=== PATIENT | male | born 1970 | race Caucasian/White ===

== ENCOUNTER 2019-10-05 11:40 | Emergency (ER) | payer OTHER ==
[~2019-10-05] VITALS: Ht 170.2 cm; Wt 81.6 kg
[2019-10-05 11:40] VITALS: BP 110/64
--- NOTE | 2019-10-05 11:44 | NUR ---
PT BIB [facility] BED 7
--- NOTE | 2019-10-05 11:51 | NUR ---
FAMILY MEMBER- PATIENT'S SON VÍCTOR- [phone]
[2019-10-05] MEDS ORDERED: MULTIVITAMIN-12 10 ML, THIAMINE 100 MG, FOLIC ACID 1 MG, MAGNESIUM SULFATE 50% 2,000 MG... IV SCH ×5 (12:05)
[2019-10-05 12:25] VITALS: BP 112/71
[2019-10-05 12:28] LABS: BASOPHILS # (AUTO) 0.1 K/uL (0.00-0.22); BASOPHILS % (AUTO) 1.4 % (0.0-2.0); EOSINOPHILS # (AUTO) 0.1 K/uL (0-0.4); EOSINOPHILS % (AUTO) 0.9 % (0.0-4.0); HEMATOCRIT 47.1 % (36-52); HEMOGLOBIN 16.1 g/dL (12.0-18.0); LYMPHOCYTES # (AUTO) 2.2 K/uL (2.0-11.5); LYMPHOCYTES % (AUTO) 28.4 % (20.5-51.1); MEAN CORPUSCULAR HEMOGLOBIN 33 pg (27-31); MEAN CORPUSCULAR HGB CONC 34 g/dL (33-37); MEAN CORPUSCULAR VOLUME 96.7 fL (80-94); MONOCYTES # (AUTO) 0.6 K/uL (0.8-1.0); MONOCYTES % (AUTO) 7.8 % (1.7-9.3); NEUTROPHILS # (AUTO) 4.8 K/uL (1.8-7.7); NEUTROPHILS % (AUTO) 61.5 % (42.2-75.2); PLATELET COUNT (AUTO) 164 K/uL (140-450); RED BLOOD CELL COUNT(AUTO) 4.87 MIL/uL (4.20-6.10); RED CELL DISTRIBUTION WIDTH 12.9 % (11.6-13.7); WHITE BLOOD COUNT (AUTO) 7.9 K/uL (4.8-10.8)
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
[2019-10-05 13:03] LABS: ALBUMIN 3.8 g/dL (3.4-5.0); ANION GAP 16.1 (8-16); ASPARTATE AMINOTRANSFERASE 140 U/L (15-37); CARBON DIOXIDE 28.6 mmol/L (21-32); CHLORIDE 102 mmol/L (98-107); CREATININE 0.8 mg/dL (0.6-1.3); GFR ARICAN-AMERICAN 133 mL/min (>90); GLUCOSE 121 mg/dL (74-106); POTASSIUM 3.7 mmol/L (3.5-5.1); SODIUM SERUM 143 mmol/L (136-145); TOTAL BILIRUBIN 2.1 mg/dL (0.0-1.0); UREA NITROGEN, BLOOD 9 mg/dL (7-18)
[2019-10-05 13:37] LABS: ACETAMINOPHEN < 0.5 ug/ml (10-30); SALICYLATE < 2.8 mg/dL (2.8-20.0)
== END 2019-10-05 12:47 | disposition left against medical advice (07) ==
LOC: MED 11:40
DX: F10.129 Alcohol abuse with intoxication, unspecified (principal); K74.69 Other cirrhosis of liver; Y90.9 Presence of alcohol in blood, level not specified
CPT/HCPCS: 36415; 80053; 82140; 85025; 99284; A9153; G0480; G0482; J3411; J3475; J3490; 93005

== ENCOUNTER 2019-10-07 18:26 | Emergency (ER) | payer OTHER ==
--- NOTE | 2019-10-07 18:41 | NUR ---
LEFT WITHOUT BEING TRIAGED.
== END 2019-10-07 18:41 | disposition left against medical advice (07) ==
LOC: MED 18:26
DX: Z53.21 Procedure and treatment not carried out due to patient leaving prior to being seen by health care provider (principal)

== ENCOUNTER 2019-10-09 16:06 | Emergency (ER) | payer OTHER ==
[~2019-10-09] VITALS: Ht 177.8 cm; Wt 77.1 kg
[2019-10-09 16:11] VITALS: BP 129/82
== END 2019-10-09 17:15 | disposition left against medical advice (07) ==
LOC: MED 16:06
DX: F10.96 Alcohol use, unspecified with alcohol-induced persisting amnestic disorder (principal); Z53.21 Procedure and treatment not carried out due to patient leaving prior to being seen by health care provider

== ENCOUNTER 2019-10-14 15:17 | Emergency (ER) | payer OTHER ==
[~2019-10-14] VITALS: Ht 167.6 cm; Wt 77.1 kg
[2019-10-14 15:33] VITALS: BP 129/81
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
[2019-10-14] MEDS ORDERED: LORazepam 2 MG/ML VIAL IVP ONE (15:35)
[2019-10-14] MEDS ORDERED: NACL 0.9% 1,000 ML IV ONE ×2 (15:35)
--- NOTE | 2019-10-14 16:00 | NUR ---
PT RESTING IN BED, SIDE RAIL X1. VSS.
--- NOTE | 2019-10-14 16:11 | NUR ---
Harriet kumar in [facility] - 10/14/19 at 1611 by BRENDEN PT TAKEN TO RAD MARIA LUISA HOFFMAN
[2019-10-14 16:44] VITALS: BP 129/81
--- NOTE | 2019-10-14 16:45 | NUR ---
Patient discharged with v/s stable, A/OX4,AMBULATORY. Written and verbal after care instructions given and explained. Patient verbalized understanding. Ambulatory with steady gait. All questions addressed prior to discharge. Advised to follow up with PMD. PT GIVEN HOMELESS RESOURCE PACKET, PROVIDED WITH FOOD, APPROPIATELY DRESS FOR WEATHER. PATIENT HOMELESS WAIVER FORM ON CHART.
== END 2019-10-14 16:45 | disposition home or self-care (01) ==
LOC: MED 15:17
DX: F10.129 Alcohol abuse with intoxication, unspecified (principal)
CPT/HCPCS: 96374; 99283; J2060; J7030